=== PATIENT | male | born 1955 | race Caucasian/White ===

== ENCOUNTER 2017-10-13 18:03 | Emergency (ER) | payer OTHER ==
[~2017-10-13] VITALS: Ht 177.8 cm; Wt 87.3 kg
[~2017-10-13 18:03] MED LIST: CIPR0.3S LEFT EAR
[2017-10-13 18:08] VITALS: BP 199/90; PULSE 105; RESP 18; TEMP 97.9; O2SAT 95
[2017-10-13] MEDS ORDERED: MULTTAB67 PO (18:14)
[2017-10-13] MEDS ORDERED: ASPI81TA23 PO (18:14)
--- NOTE | 2017-10-13 18:31 | PD ---
HPI Chief Complaint: Hypertension Time Seen by Provider: 18:12 Travel History International Travel<30 days: No Contact w/Intl Traveler<30days: No Traveled to known affect area: No History of Present Illness HPI The patient is a 62-year-old male who presents to the emergency department for elevated blood pressure, lightheadedness, and diaphoresis. The patient states he has a history of borderline hypertension and has been watching it closely, states his systolic blood pressure runs between 155-165 and his diastolic blood pressure runs in the 80s. He has been followed by his primary physician, Dr. Gregg Dwyer, who advised him that if he continued be elevated he would need to undergo treatment. The patient states she was a friend's house earlier tonight when he became slightly diaphoretic and lightheaded. The patient states they checked his blood pressure with a home blood pressure device and it read 180s/90s. The patient states he had no chest pain, shortness breath, nausea, vomiting, or weakness. He did complain of mild lightheadedness at that time. He states his symptoms have significantly improved. The patient does have a history of tobacco use, take some baby aspirin daily, but denies any chronic medical problems. Symptoms are mild to moderate, possibly exacerbated by history of elevated blood pressure, and mostly self alleviating. PFSH Past Medical History Diminished Hearing: No Hypertension: Yes (borderline) Immunizations Current: Yes Tetanus Vaccination: < 5 Years Influenza Vaccination: No Social History Alcohol Use: No Tobacco Use: Yes (1 pk) Substance Use: No Allergies-Medications (Allergen,Severity, Reaction): Coded Allergies: No Known Allergies (Unverified Adverse Reaction, Unknown, 10/13/17) Reported Meds & Prescriptions Reported Meds & Active Scripts Active Reported Multiple Vitamin 1 Tab 1 Tab PO DAILY Aspirin EC (Aspirin) 81 Mg Tabdr 81 Mg PO DAILY Review of Systems Except as stated in HPI: all other systems reviewed are Neg Eyes: No: Blurred Vision HENT: Positive: Lightheadedness, No: Headaches Cardiovascular: Positive: Diaphoresis, No: Chest Pain or Discomfort, Palpitations, Irregular Rhythm, Dyspnea on exertion Respiratory: No: Shortness of Breath Gastrointestinal: No: Nausea, Vomiting, Abdominal Pain Musculoskeletal: No: Weakness Neurologic: Positive: Dizziness, No: Headache, Change in Mentation, Slurred Speech, Paresthesia, Sensory Disturbance Physical Exam Narrative GENERAL: Awake, alert, pleasant 62-year-old male who appears his stated age and is in no acute respiratory distress. SKIN: Focused skin assessment warm/dry. HEAD: Atraumatic. Normocephalic. EYES: Pupils equal and round. 4 mm bilateral and reactive. EOMs are intact. ENT: No nasal bleeding or discharge. Mucous membranes pink and moist. NECK: Trachea midline. No JVD. CARDIOVASCULAR: Regular, tachycardic with a heart rate of 102. RESPIRATORY: No accessory muscle use. Clear to auscultation. Breath sounds equal bilaterally. GASTROINTESTINAL: Abdomen soft, non-tender, nondistended. 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 NEUROLOGICAL: Awake and alert. No obvious cranial nerve deficits. Motor grossly within normal limits. Normal speech. Nonfocal. PSYCHIATRIC: Appropriate mood and affect; insight and judgment normal. Data Data Last Documented VS Vital Signs Date Time Temp Pulse Resp B/P (MAP) Pulse Ox O2 Delivery O2 Flow Rate FiO2 10/13/17 18:56 104 18 95 Room Air 10/13/17 18:53 154/87 (109) 174/92 (119) 10/13/17 18:08 97.9 Orders Orders Electrocardiogram (10/13/17 18:26) Ckmb (Isoenzyme) Profile (10/13/17 18:26) Complete Blood Count With Diff (10/13/17 18:26) Comprehensive Metabolic Panel (10/13/17 18:26) Troponin I (10/13/17 18:26) Ecg Monitoring (10/13/17 18:26) Bilateral Bp Monitoring (10/13/17 18:26) Iv Access Insert/Monitor (10/13/17 18:26) Oximetry (10/13/17 18:26) Oxygen Administration (10/13/17 18:26) Magnesium (Mg) (10/13/17 18:26) CKMB (10/13/17 18:30) CKMB% (10/13/17 18:30) Lisinopril (Prinivil) (10/13/17 19:15) Ed Discharge Order (10/13/17 19:09) Labs Laboratory Tests Test 10/13/17 18:30 White Blood Count 10.9 TH/MM3 Red Blood Count 4.90 MIL/MM3 Hemoglobin 14.5 GM/DL Hematocrit 42.9 % Mean Corpuscular Volume 87.5 FL Mean Corpuscular Hemoglobin 29.6 PG Mean Corpuscular Hemoglobin Concent 33.9 % Red Cell Distribution Width 12.8 % Platelet Count 377 TH/MM3 Mean Platelet Volume 7.2 FL Neutrophils (%) (Auto) 68.9 % Lymphocytes (%) (Auto) 23.4 % Monocytes (%) (Auto) 5.2 % Eosinophils (%) (Auto) 1.8 % Basophils (%) (Auto) 0.7 % Neutrophils # (Auto) 7.5 TH/MM3 Lymphocytes # (Auto) 2.5 TH/MM3 Monocytes # (Auto) 0.6 TH/MM3 Eosinophils # (Auto) 0.2 TH/MM3 Basophils # (Auto) 0.1 TH/MM3 CBC Comment DIFF FINAL Differential Comment Blood Urea Nitrogen 15 MG/DL Creatinine 0.90 MG/DL Random Glucose 135 MG/DL Total Protein 7.2 GM/DL Albumin 3.6 GM/DL Calcium Level 8.4 MG/DL Magnesium Level 2.2 MG/DL Alkaline Phosphatase 94 U/L Aspartate Amino Transf (AST/SGOT) 17 U/L Alanine Aminotransferase (ALT/SGPT) 24 U/L Total Bilirubin 0.2 MG/DL Sodium Level 140 MEQ/L Potassium Level 4.0 MEQ/L Chloride Level 106 MEQ/L Carbon Dioxide Level 26.7 MEQ/L Anion Gap 7 MEQ/L Estimat Glomerular Filtration Rate 85 ML/MIN Total Creatine Kinase 160 U/L Troponin I LESS THAN 0.02 NG/ML MDM Medical Decision Making Medical Screen Exam Complete: Yes Emergency Medical Condition: Yes Medical Record Reviewed: Yes Interpretation(s) EKG reveals sinus tachycardia with a heart rate of 104. Q wave noted in lead V1 and V2. QTC 408 ms. QT interval is just less than half of the RR interval. Laboratory Tests Test 10/13/17 18:30 White Blood Count 10.9 TH/MM3 Red Blood Count 4.90 MIL/MM3 Hemoglobin 14.5 GM/DL Hematocrit 42.9 % Mean Corpuscular Volume 87.5 FL Mean Corpuscular Hemoglobin 29.6 PG Mean Corpuscular Hemoglobin Concent 33.9 % Red Cell Distribution Width 12.8 % Platelet Count 377 TH/MM3 Mean Platelet Volume 7.2 FL Neutrophils (%) (Auto) 68.9 % Lymphocytes (%) (Auto) 23.4 % Monocytes (%) (Auto) 5.2 % Eosinophils (%) (Auto) 1.8 % Basophils (%) (Auto) 0.7 % Neutrophils # (Auto) 7.5 TH/MM3 Lymphocytes # (Auto) 2.5 TH/MM3 Monocytes # (Auto) 0.6 TH/MM3 Eosinophils # (Auto) 0.2 TH/MM3 Basophils # (Auto) 0.1 TH/MM3 CBC Comment DIFF FINAL Differential Comment Blood Urea Nitrogen 15 MG/DL Creatinine 0.90 MG/DL Random Glucose 135 MG/DL Total Protein 7.2 GM/DL Albumin 3.6 GM/DL Calcium Level 8.4 MG/DL Magnesium Level 2.2 MG/DL Alkaline Phosphatase 94 U/L Aspartate Amino Transf (AST/SGOT) 17 U/L Alanine Aminotransferase (ALT/SGPT) 24 U/L Total Bilirubin 0.2 MG/DL Sodium Level 140 MEQ/L Potassium Level 4.0 MEQ/L Chloride Level 106 MEQ/L Carbon Dioxide Level 26.7 MEQ/L Anion Gap 7 MEQ/L Estimat Glomerular Filtration Rate 85 ML/MIN Total Creatine Kinase 160 U/L Troponin I LESS THAN 0.02 NG/ML Differential Diagnosis Differential diagnosis includes hypertension, hypertensive urgency, hypertensive emergency, LA, ACS, intracranial hemorrhage, pulmonary embolism. Narrative Course IV was established, labs were drawn and sent, and the patient was placed on cardiac telemetry monitoring and continuous pulse oximetry monitoring. EKG was ordered and interpreted. The patient's EKG did reveal sinus tachycardia with a QTC of 408 ms, QT interval was just less than half of the RR interval, therefore , magnesium level was sent to lab. The patient's magnesium level was normal at 2.2. The patient's blood pressure varied between the 150s to the 190s systolic in the emergency department. Heart rate was right around 100-105. The patient has no chest pain or shortness of breath, I doubt pulmonary embolism. The patient does appear to have underlying hypertension, we had a discussion regarding treatment with Norvasc versus lisinopril. The patient does have a right lower extremity prosthesis and would prefer to avoid dependent edema, therefore, will be placed on low Cipro. He is advised that he will need repeat laboratory testing in 3-6 months. He will be provided a copy of his EKG and lab results at discharge, is advised to follow-up with his primary physician, Dr. Gregg Dwyer, as scheduled in 2 weeks and the monitor his blood pressure daily with a blood pressure log. The patient agrees and understands. He is also advised to return if symptoms worsen or progress. Diagnosis Primary Impression: Hypertension Qualified Codes: I10 - Essential (primary) hypertension Patient Instructions: General Instructions Additional Instructions: Medication as directed. Monitor blood pressure daily and keep a blood pressure log. Please provide the patient a copy of his EKG and lab results at discharge. Follow-up with Dr. Gregg Dwyer as scheduled. Return sooner if symptoms worsen or progress. Med/Other Pt SpecificInfo: Prescription(s) given Scripts Lisinopril (Lisinopril) 10 Mg Tab 10 MG PO DAILY, #30 TAB 0 Refills Prov: Bernardo Suh MD 10/13/17 Disposition: 01 DISCHARGE HOME Condition: Stable Bernardo Suh MD Oct 13, 2017 18:31
[2017-10-13 18:43] LABS: AUTOMATED NEUTROPHIL # 7.5 TH/MM3 (1.8-7.7); BASOPHIL # 0.1 TH/MM3 (0-0.2); BASOPHIL % 0.7 % (0.0-2.0); EOSINOPHIL # 0.2 TH/MM3 (0-0.4); EOSINOPHIL % 1.8 % (0.0-4.0); HEMATOCRIT 42.9 % (39.0-51.0); HEMO FLAGS DIFF FINAL; LYMPH % 23.4 % (9.0-44.0); LYMPHOCYTE # 2.5 TH/MM3 (1.0-4.8); MEAN CELL VOLUME 87.5 FL (80.0-100.0); MEAN CORPUSCULAR HEMOGLOBIN 29.6 PG (27.0-34.0); MEAN CORPUSCULAR HGB CONC 33.9 % (32.0-36.0); MONO % 5.2 % (0.0-8.0); NEUT % 68.9 % (16.0-70.0); PLATELET COUNT 377 TH/MM3 (150-450); RED CELL DISTRIBUTION WIDTH 12.8 % (11.6-17.2); WHITE BLOOD COUNT 10.9 TH/MM3 (4.0-11.0)
[2017-10-13 18:46] VITALS: O2SAT 95
[2017-10-13 18:53] VITALS: BP_SYST 154; BP_SYST 174; BP_DIAS 87; BP_DIAS 92; PULSE 104; RESP 18; O2SAT 95
[2017-10-13 18:53] LABS: CHLORIDE 106 MEQ/L (98-107); SODIUM (NA) 140 MEQ/L (136-145)
[2017-10-13 18:56] LABS: ANION GAP 7 MEQ/L (5-15); BICARBONATE 26.7 MEQ/L (21.0-32.0); BLOOD UREA NITROGEN 15 MG/DL (7-18); MAGNESIUM 2.2 MG/DL (1.5-2.5)
[2017-10-13 18:59] LABS: ALT (GPT) 24 U/L (12-78); AST (GOT) 17 U/L (15-37)
[2017-10-13 19:00] LABS: GLOMERULAR FILTRATION RATE 85 ML/MIN (>89)
[2017-10-13 19:01] LABS: TOTAL BILIRUBIN ADULT 0.2 MG/DL (0.2-1.0)
[2017-10-13 19:02] LABS: ALKALINE PHOSPHATASE 94 U/L (45-117); CREATINE KINASE 160 U/L (39-308)
[2017-10-13] MEDS ORDERED: LISI10TA3 PO (19:12)
[2017-10-13 19:14] LABS: CKMB 2.2 NG/ML (0.5-3.6)
[2017-10-13] MEDS ORDERED: LISINOPRIL 10 MG TAB PO ONE (19:15)
[2017-10-13 19:35] VITALS: BP 175/86
--- NOTE | 2017-10-14 13:03 | EKG ---
Date Performed: 10/13/2017 Time Performed: 18:31:46 PTAGE: 62 years EKG: SINUS TACHYCARDIA SEPTAL MYOCARDIAL INFARCTION ABNORMAL ECG NO PREVIOUS TRACING DOCTOR: Lukas Cowan Interpretating Date/Time 10/14/2017 13:01:46
== END 2017-10-13 19:37 | disposition home or self-care (01) ==
LOC: PHED 18:03
DX: I10 Essential (primary) hypertension (principal); R61 Generalized hyperhidrosis; R00.0 Tachycardia, unspecified; F17.200 Nicotine dependence, unspecified, uncomplicated; Z79.82 Long term (current) use of aspirin
CPT/HCPCS: 80053; 82550; 82552; 83735; 84484; 85025; 93005

== ENCOUNTER 2018-02-27 21:41 | Emergency (ER) | payer OTHER ==
[~2018-02-27] VITALS: Ht 177.8 cm; Wt 84.5 kg
[~2018-02-27 21:41] MED LIST changes: +ASPI81TA23 PO; -CIPR0.3S LEFT EAR; +LISI10TA3 PO; +MULTTAB67 PO
[2018-02-27 21:46] VITALS: BP_SYST 164; BP_SYST 193; BP_DIAS 107; BP_DIAS 74; PULSE 85; PULSE 99; RESP 20; TEMP 98.8; O2SAT 96
[2018-02-27] MEDS ORDERED: LISI40TA PO (22:10)
[2018-02-27] MEDS ORDERED: AMLO2.5T PO (22:10)
[2018-02-27 22:12] VITALS: BP 184/107; PULSE 97; RESP 18; O2SAT 96
[2018-02-27 23:04] LABS: AUTOMATED NEUTROPHIL # 8.9 TH/MM3 (1.8-7.7); BASOPHIL # 0.2 TH/MM3 (0-0.2); BASOPHIL % 1.3 % (0.0-2.0); EOSINOPHIL # 0.2 TH/MM3 (0-0.4); EOSINOPHIL % 1.5 % (0.0-4.0); HEMOGLOBIN 15.5 GM/DL (13.0-17.0); LYMPH % 26.3 % (9.0-44.0); LYMPHOCYTE # 3.5 TH/MM3 (1.0-4.8); MEAN CELL VOLUME 88.4 FL (80.0-100.0); MEAN CORPUSCULAR HEMOGLOBIN 29.8 PG (27.0-34.0); MEAN CORPUSCULAR HGB CONC 33.7 % (32.0-36.0); MEAN PLATELET VOLUME 8.3 FL (7.0-11.0); MONO % 4.4 % (0.0-8.0); MONOCYTE # 0.6 TH/MM3 (0-0.9); NEUT % 66.5 % (16.0-70.0); PLATELET COUNT 273 TH/MM3 (150-450); RED BLOOD COUNT 5.21 MIL/MM3 (4.50-5.90); RED CELL DISTRIBUTION WIDTH 13.6 % (11.6-17.2); WHITE BLOOD COUNT 13.4 TH/MM3 (4.0-11.0)
[2018-02-27 23:15] LABS: CHLORIDE 105 MEQ/L (98-107); SODIUM (NA) 138 MEQ/L (136-145)
[2018-02-27] MEDS ORDERED: ACETAMINOPHEN 325 MG TAB PO ONE (23:15)
--- NOTE | 2018-02-27 23:15 | RADRPT ---
EXAM DATE/TIME: 02/27/2018 22:51 [facility] COMPARISON: No previous studies available for comparison. INDICATIONS : Hypertension, dizziness. MEDICAL HISTORY : None. SURGICAL HISTORY : None. ENCOUNTER: Initial ACUITY: 1 day PAIN SCORE: 0/10 LOCATION: Bilateral chest FINDINGS: A single view of the chest demonstrates the lungs to be symmetrically aerated without evidence of mas s, infiltrate or effusion. The cardiomediastinal contours are unremarkable. Osseous structures are intact. CONCLUSION: No acute disease. Clif Peacock MD on February 27, 2018 at 23:14 Board Certified Radiologist. This report was verified electronically.
[2018-02-27 23:18] LABS: CALCIUM 8.7 MG/DL (8.5-10.1)
[2018-02-27 23:19] LABS: BICARBONATE 26.7 MEQ/L (21.0-32.0); BLOOD UREA NITROGEN 19 MG/DL (7-18); GLUCOSE,RANDOM 93 MG/DL (74-106)
[2018-02-27 23:22] LABS: CREATININE 0.83 MG/DL (0.60-1.30); GLOMERULAR FILTRATION RATE 93 ML/MIN (>89)
--- NOTE | 2018-02-27 23:22 | PD ---
HPI Chief Complaint: Hypertension Time Seen by Provider: 23:14 Travel History International Travel<30 days: No Contact w/Intl Traveler<30days: No Traveled to known affect area: No History of Present Illness HPI The patient is a 62-year-old male that complains of anxiety, lightheadedness without vertigo and he felt his blood pressure going up around 7:30 PM tonight. He denies any chest pain or shortness of breath. He denies any focal neurologic change. He has a mild headache in both temporal regions and bifrontal areas which is a 3/10. The headache is a pressure sensation. He denies any fever. He does smoke 1-1/2 packs a day. The patient is taking his lisinopril and amlodipine correctly. He did take an aspirin, full strength, earlier tonight. He does have a friend that will drive him home tonight. PFSH Past Medical History Diminished Hearing: No Hypertension: Yes (borderline) Immunizations Current: Yes Tetanus Vaccination: < 5 Years Influenza Vaccination: No Social History Alcohol Use: Yes (OCCASIONALLY) Tobacco Use: Yes (1 /2 PPD) Substance Use: No Allergies-Medications (Allergen,Severity, Reaction): Coded Allergies: No Known Allergies (Unverified Allergy, Unknown, 02/27/18) Reported Meds & Prescriptions Reported Meds & Active Scripts Active Reported Amlodipine (Amlodipine Besylate) 2.5 Mg Tab 2.5 Mg PO DAILY Lisinopril 40 Mg Tab 40 Mg PO DAILY Multiple Vitamin 1 Tab 1 Tab PO DAILY Aspirin EC (Aspirin) 81 Mg Tabdr 81 Mg PO DAILY Review of Systems Except as stated in HPI: all other systems reviewed are Neg Physical Exam Narrative GENERAL: The patient is alert, slightly anxious, oriented 3 in minimal apparent distress with his headache. His vital signs show initial blood pressure of 193/107 and repeat blood pressure is 175/95. The patient smells of tobacco. SKIN: Focused skin assessment warm/dry. HEAD: Atraumatic. Normocephalic. EYES: Pupils equal and round. No scleral icterus. No injection or drainage. ENT: No nasal bleeding or discharge. Mucous membranes pink and moist. NECK: Trachea midline. No JVD. CARDIOVASCULAR: Regular rate and rhythm. No murmur appreciated. RESPIRATORY: No accessory muscle use. Clear to auscultation. Breath sounds equal bilaterally. GASTROINTESTINAL: Abdomen soft, non-tender, nondistended. Hepatic and splenic margins not palpable. MUSCULOSKELETAL: No obvious deformities. No clubbing. No cyanosis. No edema. NEUROLOGICAL: Awake and alert. No obvious cranial nerve deficits. Motor grossly within normal limits. Normal speech. PSYCHIATRIC: Appropriate mood and affect; insight and judgment normal. Data Data Last Documented VS Vital Signs Date Time Temp Pulse Resp B/P (MAP) Pulse Ox O2 Delivery O2 Flow Rate FiO2 02/27/18 23:31 18 96 Room Air 02/27/18 23:30 98 02/27/18 21:46 98.8 Orders Orders Electrocardiogram (02/27/18 22:49) Complete Blood Count With Diff (02/27/18 22:49) Basic Metabolic Panel (Bmp) (02/27/18 22:49) Ckmb (Isoenzyme) Profile (02/27/18 22:49) Troponin I (02/27/18 22:49) Chest, Single Ap (02/27/18 22:49) Iv Access Insert/Monitor (02/27/18 22:49) Ecg Monitoring (02/27/18 22:49) Oximetry (02/27/18 22:49) Acetaminophen (Tylenol) (02/27/18 23:15) Lorazepam Inj (Ativan Inj) (02/27/18 23:30) Labs Laboratory Tests Test 02/27/18 20:20 02/27/18 22:20 White Blood Count 13.4 TH/MM3 Red Blood Count 5.21 MIL/MM3 Hemoglobin 15.5 GM/DL Hematocrit 46.0 % Mean Corpuscular Volume 88.4 FL Mean Corpuscular Hemoglobin 29.8 PG Mean Corpuscular Hemoglobin Concent 33.7 % Red Cell Distribution Width 13.6 % Platelet Count 273 TH/MM3 Mean Platelet Volume 8.3 FL Neutrophils (%) (Auto) 66.5 % Lymphocytes (%) (Auto) 26.3 % Monocytes (%) (Auto) 4.4 % Eosinophils (%) (Auto) 1.5 % Basophils (%) (Auto) 1.3 % Neutrophils # (Auto) 8.9 TH/MM3 Lymphocytes # (Auto) 3.5 TH/MM3 Monocytes # (Auto) 0.6 TH/MM3 Eosinophils # (Auto) 0.2 TH/MM3 Basophils # (Auto) 0.2 TH/MM3 CBC Comment DIFF FINAL Differential Comment Blood Urea Nitrogen 19 MG/DL Creatinine 0.83 MG/DL Random Glucose 93 MG/DL Calcium Level 8.7 MG/DL Sodium Level 138 MEQ/L Potassium Level 4.0 MEQ/L Chloride Level 105 MEQ/L Carbon Dioxide Level 26.7 MEQ/L Anion Gap 6 MEQ/L Estimat Glomerular Filtration Rate 93 ML/MIN Total Creatine Kinase 92 U/L Troponin I LESS THAN 0.02 NG/ML MDM Medical Decision Making Medical Screen Exam Complete: Yes Emergency Medical Condition: Yes Medical Record Reviewed: Yes Interpretation(s) The EKG shows sinus tachycardia with a rate of [address] elevation or depression. The CBC shows a white count of 13,400 but is otherwise normal. The basic metabolic profile shows a BUN of 19 but is otherwise normal. The cardiac enzymes are normal. Differential Diagnosis Anxiety, blood pressure poor control Narrative Course The patient appears to have some anxiety. This apparently elevated his blood pressure slightly. He has no focal neurologic change. He should follow-up with his primary care physician as soon as possible. The cardiac enzymes and blood work is all normal except for minimal elevation of the white count at 13, 400. Diagnosis Primary Impression: Anxiety Additional Impression: Elevated blood pressure reading Additional Instructions: Follow-up with your primary care physician to control the blood pressure. Tonight, it appears that anxiety played a major part in the blood pressure elevation. Disposition: 01 DISCHARGE HOME Condition: Stable Bayron Fletcher MD Feb 27, 2018 23:22
[2018-02-27 23:26] LABS: TROPONIN I LESS THAN 0.02 NG/ML (0.02-0.05)
[2018-02-27 23:30] VITALS: BP 174/94; PULSE 98; RESP 18; O2SAT 96
[2018-02-27] MEDS ORDERED: LORazepam 2 MG/ML VIAL IV PUSH ONE (23:30)
[2018-02-27 23:31] VITALS: RESP 18; O2SAT 96
--- NOTE | 2018-02-28 07:40 | EKG ---
Date Performed: 02/27/2018 Time Performed: 23:03:20 PTAGE: 62 years EKG: SINUS TACHYCARDIA with PAC ABNORMAL RHYTHM ECG PREVIOUS TRACING : 10/13/2017 18.31 No significant change from prior electrocardiogram. DOCTOR: Tim Haywood Interpretating Date/Time 02/28/2018 07:38:16
== END 2018-02-28 00:14 | disposition home or self-care (01) ==
LOC: PHED 21:41
DX: F41.9 Anxiety disorder, unspecified (principal); R03.0 Elevated blood-pressure reading, without diagnosis of hypertension; R94.31 Abnormal electrocardiogram [ECG] [EKG]; F17.200 Nicotine dependence, unspecified, uncomplicated
CPT/HCPCS: 71045; 80048; 82550; 84484; 85025; 93005; 96374; 99285; J2060

== ENCOUNTER 2018-04-09 18:56 | Inpatient (IN) | payer OTHER ==
[~2018-04-09] VITALS: Ht 177.8 cm; Wt 81.6 kg
[~2018-04-09 18:56] MED LIST changes: +AMLO2.5T PO; -LISI10TA3 PO; +LISI40TA PO
[2018-04-09 19:04] VITALS: BP 183/101; PULSE 86; RESP 18; O2SAT 95
[2018-04-09] MEDS ORDERED: ASPIRIN 81 MG CHEW TAB PO ONE (19:30)
[2018-04-09] MEDS ORDERED: SODIUM CHLORIDE 0.9% FLUSH 10 ML FLUSH IVF PRN (19:30)
--- NOTE | 2018-04-09 19:30 | PD ---
HPI Chief Complaint: Hypertension Time Seen by Provider: 19:29 Travel History International Travel<30 days: No Contact w/Intl Traveler<30days: No Traveled to known affect area: No History of Present Illness HPI 62-year-old male with history of hypertension and tobaccoism presents to the emergency department for complaint of retrosternal chest discomfort and eyes burning since approximately 5 PM. Patient reports he has had symptoms like this before but never had chest discomfort. Patient denies any referred neck jaw back shoulder or arm pain. Patient had transient nausea but no shortness of breath or sweats. Patient denies any abdominal pain. Patient denies any upper extremity or lower extremity numbness tingling or weakness. Patient did have associated dizziness. Patient states he checked his blood pressure and was elevated. Patient took amlodipine 5 mg at 6 PM. Patient has history of hypertension is prescribed lisinopril 40 mg daily and more recently amlodipine 5 mg daily. Amlodipine was increased after last hospital visit February 2018 at which time he was on amlodipine 2.5 mg with episodes of elevated blood pressure and reported anxiety. Patient's blood pressure medication dose was increased and he was given prescription for antianxiety appear patient did not take antianxiety today and did not feel particularly stressed when episode began. Patient denies any coronary vessel disease, dyslipidemia, diabetes, or premature onset family history of coronary vessel disease. Patient's had no altered mentation no sudden onset worst ever thunderclap headache no change in mentation no change in speech no balance disturbance no ataxia no upper extremity or lower extremity numbness tingling or weakness. Friend who is present was with him when symptoms began and denies any noted neurologic symptoms. Patient is unable to identify exacerbating or alleviating factors. [facility] Past Medical History Narrative Medical Aspirin daily hypertension COPD tonsillectomy tobacco use occasional alcohol use ; family history negative for CVA or MN; nursing notes reviewed Hx Anticoagulant Therapy: Yes (81mg ASA) Cardiovascular Problems: Yes (HTN) Diminished Hearing: No Hypertension: Yes Respiratory: Yes (COPD) Immunizations Current: Yes Past Surgical History Tonsillectomy: Yes Social History Alcohol Use: Yes (OCCASIONALLY) Tobacco Use: Yes (12 cig/ day) Substance Use: No Allergies-Medications (Allergen,Severity, Reaction): Coded Allergies: No Known Allergies (Unverified Allergy, Unknown, 04/09/18) Reported Meds & Prescriptions Reported Meds & Active Scripts Active Reported Amlodipine (Amlodipine Besylate) 2.5 Mg Tab 5 Mg PO DAILY Lisinopril 40 Mg Tab 40 Mg PO DAILY Review of Systems Except as stated in HPI: all other systems reviewed are Neg Physical Exam Narrative GENERAL: Well-developed, nourished male no acute distress no respiratory distress; GCS 15 SKIN: Warm and dry. HEAD: Atraumatic. Normocephalic. EYES: Pupils equal and round. No scleral icterus. No injection or drainage. ENT: No nasal bleeding or discharge. Mucous membranes pink and moist. NECK: Trachea midline. No JVD. No carotid bruits. CARDIOVASCULAR: Regular rate and rhythm. RESPIRATORY: No accessory muscle use. Clear to auscultation. Breath sounds equal bilaterally. GASTROINTESTINAL: Abdomen soft, non-tender, nondistended. Hepatic and splenic margins not palpable. MUSCULOSKELETAL: Extremities without clubbing, cyanosis, or edema. No obvious deformities. NEUROLOGICAL: Awake and alert. No obvious cranial nerve deficits. Motor grossly within normal limits. Five out of 5 muscle strength in the arms and legs. Normal speech. PSYCHIATRIC: Appropriate mood and affect; insight and judgment normal. Data Data Last Documented VS Vital Signs Date Time Temp Pulse Resp B/P (MAP) Pulse Ox O2 Delivery O2 Flow Rate FiO2 04/09/18 20:16 16 04/09/18 20:15 106 147/74 (98) 94 Room Air Orders Orders Electrocardiogram (04/09/18 19:29) Basic Metabolic Panel (Bmp) (04/09/18 19:29) Ckmb (Isoenzyme) Profile (04/09/18 19:29) Complete Blood Count With Diff (04/09/18 19:29) Magnesium (Mg) (04/09/18 19:29) Prothrombin Time / Inr (Pt) (04/09/18 19:29) Act Partial Throm Time (Ptt) (04/09/18 19:29) Troponin I (04/09/18 19:29) Ecg Monitoring (04/09/18 19:29) Bilateral Bp Monitoring (04/09/18 19:29) Iv Access Insert/Monitor (04/09/18 19:29) Oximetry (04/09/18 19:29) Oxygen Administration (04/09/18 19:29) Aspirin Chew (Aspirin Chew) (04/09/18 19:30) Sodium Chloride 0.9% Flush (Ns Flush) (04/09/18 19:30) Chest, Pa & Lat (04/09/18 19:29) Sodium Chlorid 0.9% 500 Ml Inj (Ns 500 M (04/09/18 19:45) Nitroglycerin Sl (Nitrostat Sl) (04/09/18 19:45) Urinalysis - C+S If Indicated (04/09/18 20:30) Admit Order (Ed Use Only) (04/09/18 ) Sailing Master / Telemetry ROS.Q8H (04/09/18 20:53) Activity Oob With Assistance (04/09/18 20:53) Notify Dr: Other (04/09/18 20:53) Vital Signs (Adult) Q4H (04/09/18 20:53) Activity Bed Rest With Brp (04/09/18 ) Sailing Master / Telemetry ROS.Q8H (04/09/18 20:53) Sodium Chloride 0.9% Flush (Ns Flush) (04/09/18 21:00) Sodium Chloride 0.9% Flush (Ns Flush) (04/09/18 21:00) Nitroglycerin 2% Oint (Nitroglycerin 2% (04/10/18 00:00) Alprazolam (Xanax) (04/09/18 21:00) Creatine Kinase (Cpk) (04/09/18 22:45) Creatine Kinase (Cpk) (04/10/18 04:45) Troponin I (04/09/18 22:45) Electrocardiogram (04/09/18 22:45) Electrocardiogram (04/10/18 04:45) Labs Laboratory Tests Test 04/09/18 19:42 White Blood Count 14.3 TH/MM3 Red Blood Count 5.30 MIL/MM3 Hemoglobin 15.6 GM/DL Hematocrit 46.9 % Mean Corpuscular Volume 88.6 FL Mean Corpuscular Hemoglobin 29.5 PG Mean Corpuscular Hemoglobin Concent 33.3 % Red Cell Distribution Width 13.1 % Platelet Count 293 TH/MM3 Mean Platelet Volume 7.9 FL Neutrophils (%) (Auto) 73.6 % Lymphocytes (%) (Auto) 21.0 % Monocytes (%) (Auto) 3.7 % Eosinophils (%) (Auto) 0.7 % Basophils (%) (Auto) 1.0 % Neutrophils # (Auto) 10.6 TH/MM3 Lymphocytes # (Auto) 3.0 TH/MM3 Monocytes # (Auto) 0.5 TH/MM3 Eosinophils # (Auto) 0.1 TH/MM3 Basophils # (Auto) 0.1 TH/MM3 CBC Comment DIFF FINAL Differential Comment Prothrombin Time 10.1 SEC Prothromb Time International Ratio 1.0 RATIO Activated Partial Thromboplast Time 27.9 SEC Blood Urea Nitrogen 13 MG/DL Creatinine 0.68 MG/DL Random Glucose 93 MG/DL Calcium Level 8.9 MG/DL Magnesium Level 2.2 MG/DL Sodium Level 137 MEQ/L Potassium Level 3.9 MEQ/L Chloride Level 105 MEQ/L Carbon Dioxide Level 25.9 MEQ/L Anion Gap 6 MEQ/L Estimat Glomerular Filtration Rate 117 ML/MIN Total Creatine Kinase 93 U/L Troponin I LESS THAN 0.02 NG/ML MDM Medical Decision Making Medical Screen Exam Complete: Yes Emergency Medical Condition: Yes Medical Record Reviewed: Yes Interpretation(s) EKG: Normal sinus rhythm rate [address] elevation or injury pattern change occasional PAC Last Impressions Chest X-Ray 04/09/181928 Signed Impressions: Service Date/Time: Monday, April 09, 2018 19:42 - CONCLUSION: 1. No acute cardiopulmonary disease. Dayo Agrawal MD CBC & BMP Diagram 04/09/18 19:42 Calcium Level 8.9, Magnesium Level 2.2 Vital Signs Date Time Temp Pulse Resp B/P (MAP) Pulse Ox O2 Delivery O2 Flow Rate FiO2 04/09/18 20:16 16 04/09/18 20:15 106 16 147/74 (98) 94 Room Air 04/09/18 20:08 94 Room Air 04/09/18 20:08 101 16 164/85 (111) 94 Room Air 04/09/18 20:08 16 94 Room Air 04/09/18 19:43 161/83 (109) 163/87 (112) 04/09/18 19:04 86 18 183/101 (128) 95 Troponin I: Less than 0.02, not elevated Differential Diagnosis Chest pain atypical chest pain uncontrolled hypertension, aortic dissection, aneurysm, musculoskeletal pain Narrative Course Patient placed on potline monitor IV access obtained specimens collected and sent for resulting patient administered nitroglycerin and aspirin Patient with risk factor profile for cardiac disease male age over 40 tobacco use and family history of heart disease. Patient is aware of plan for observation admission to chest pain center per protocol and is agreeable with this. Physician Communication Physician Communication discussed with [facility] service for OBS Diagnosis Primary Impression: Chest pain Additional Impression: Hypertension Admitting Information Admitting Physician Requests: Observation Daysi Carlson MD April 09, 2018 19:30
[2018-04-09 19:43] VITALS: BP_SYST 161; BP_SYST 163; BP_DIAS 83; BP_DIAS 87
[2018-04-09] MEDS ORDERED: NITROGLYCERIN 0.4 MG SL 25 TABS/BTL SL ONE (19:45)
[2018-04-09] MEDS ORDERED: SODIUM CHLORID 0.9% 500 ML INJ 500 ML IV SCH (19:45)
[2018-04-09 19:49] LABS: AUTOMATED NEUTROPHIL # 10.6 TH/MM3 (1.8-7.7); BASOPHIL # 0.1 TH/MM3 (0-0.2); EOSINOPHIL # 0.1 TH/MM3 (0-0.4); EOSINOPHIL % 0.7 % (0.0-4.0); HEMATOCRIT 46.9 % (39.0-51.0); HEMOGLOBIN 15.6 GM/DL (13.0-17.0); MEAN CELL VOLUME 88.6 FL (80.0-100.0); MEAN CORPUSCULAR HEMOGLOBIN 29.5 PG (27.0-34.0); MEAN CORPUSCULAR HGB CONC 33.3 % (32.0-36.0); MEAN PLATELET VOLUME 7.9 FL (7.0-11.0); MONO % 3.7 % (0.0-8.0); MONOCYTE # 0.5 TH/MM3 (0-0.9); NEUT % 73.6 % (16.0-70.0); PLATELET COUNT 293 TH/MM3 (150-450); RED CELL DISTRIBUTION WIDTH 13.1 % (11.6-17.2); WHITE BLOOD COUNT 14.3 TH/MM3 (4.0-11.0)
[2018-04-09 19:56] LABS: CHLORIDE 105 MEQ/L (98-107); SODIUM (NA) 137 MEQ/L (136-145)
[2018-04-09 19:59] LABS: BICARBONATE 25.9 MEQ/L (21.0-32.0); CALCIUM 8.9 MG/DL (8.5-10.1); GLUCOSE,RANDOM 93 MG/DL (74-106); MAGNESIUM 2.2 MG/DL (1.5-2.5)
[2018-04-09 20:00] LABS: BLOOD UREA NITROGEN 13 MG/DL (7-18)
[2018-04-09 20:03] LABS: CREATININE 0.68 MG/DL (0.60-1.30); GLOMERULAR FILTRATION RATE 117 ML/MIN (>89)
[2018-04-09 20:05] LABS: PROTHROMBIN TIME - PATIENT 10.1 SEC (9.8-11.6)
[2018-04-09 20:07] LABS: TROPONIN I LESS THAN 0.02 NG/ML (0.02-0.05)
[2018-04-09 20:08] VITALS: BP 164/85; PULSE 101; RESP 16; O2SAT 94
--- NOTE | 2018-04-09 20:08 | RADRPT ---
EXAM DATE/TIME: 04/09/2018 19:42 [facility] COMPARISON: No previous studies available for comparison. INDICATIONS : Chest pain. MEDICAL HISTORY : Chronic obstructive pulmonary disease. SURGICAL HISTORY : None. ENCOUNTER: Initial ACUITY: 1 day PAIN SCORE: 2/10 LOCATION: Bilateral chest FINDINGS: PA and lateral views of the chest demonstrate the lungs to be symmetrically aerated without evidence of mass, infiltrate or effusion. The cardiomediastinal contours are unremarkable. Osseous structure s are intact. CONCLUSION: 1. No acute cardiopulmonary disease. Dayo Agrawal MD on April 09, 2018 at 20:06 Board Certified Radiologist. This report was verified electronically.
[2018-04-09 20:15] VITALS: BP 147/74; PULSE 106; RESP 16; RESP 46; O2SAT 94
[2018-04-09] MEDS ORDERED: SODIUM CHLORIDE 0.9% FLUSH 10 ML FLUSH IV FLUSH PRN (21:00)
[2018-04-09] MEDS ORDERED: ALPRAZolam 0.25 MG TAB PO PRN (21:00)
[2018-04-09 21:36] VITALS: BP 141/93; PULSE 100; RESP 16; O2SAT 94
[2018-04-09] MEDS: SODIUM CHLORIDE 0.9% FLUSH 10 ML FLUSH IV FLUSH SCH (21:38)
[2018-04-09 21:42] LABS: BILIRUBIN, URINE NEG (NEG); BLOOD, URINE NEG (NEG); GLUCOSE,URINE NEG (NEG); KETONE, URINE NEG (NEG); NITRITE,URINE NEG (NEG); PH, URINE 5.5 (5.0-8.5); URINE COLOR YELLOW (YELLW/STRAW); URINE LEUKOCYTE ESTERASE NEG (NEG)
[2018-04-09 21:48] LABS: RBC, URINE 0-2 /hpf (0-3); SQUAMOUS EPITHELIAL CELL URINE 0-5 /hpf (0-5); WBC, URINE 0-2 /hpf (0-5)
--- NOTE | 2018-04-09 22:37 | EKG ---
Date Performed: 04/09/2018 Time Performed: 19:16:34 PTAGE: 62 years EKG: Sinus rhythm NORMAL ECG PREVIOUS TRACING : 02/27/2018 23.03 No significant change from previous tracing noted. DOCTOR: Epi Osorio Interpretating Date/Time 04/09/2018 22:36:18
--- NOTE | 2018-04-09 22:49 | EKG ---
Date Performed: 04/09/2018 Time Performed: 22:31:06 PTAGE: 62 years EKG: Sinus rhythm NORMAL ECG PREVIOUS TRACING : 04/09/2018 19.16 No significant change from previous tracing noted. DOCTOR: Epi Osorio Interpretating Date/Time 04/09/2018 22:47:38
[2018-04-09 23:00] VITALS: BP 158/95; PULSE 96; RESP 22; TEMP 97.8; O2SAT 98
[2018-04-10] VITALS (12 sets, daily range): BP systolic 103–150; BP diastolic 70–86; PULSE 83–106; RESP 20–26; TEMP 96.2–97.8; O2SAT 91–96
[2018-04-10] MEDS: NITROGLYCERIN 2% OINT 1 GM PACKET TOP SCH ×5 (01:19→23:40)
--- NOTE | 2018-04-10 07:57 | EKG ---
Date Performed: 04/10/2018 Time Performed: 04:48:26 PTAGE: 62 years EKG: Sinus rhythm WITH OCCASIONAL SUPRAVENTRICULAR PREMATURE COMPLEXES BORDERLINE ECG PREVIOUS TRACING : 04/09/2018 22.31 No significant change from previous tracing noted. DOCTOR: Epi Osorio Interpretating Date/Time 04/10/2018 07:56:20
[2018-04-10] MEDS: SODIUM CHLORIDE 0.9% FLUSH 10 ML FLUSH IV FLUSH SCH ×2 (08:29→21:45)
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
[2018-04-10] MEDS: LISINOPRIL 20 MG TAB PO SCH (10:37)
[2018-04-10] MEDS: amLODIPine BESYLATE 5 MG TAB PO SCH (10:37)
[2018-04-10] MEDS ORDERED: REGADENOSON INJ 0.4 MG/5 ML SYR IV ONE (11:49)
--- NOTE | 2018-04-10 16:21 | RADRPT ---
EXAM DATE/TIME: 04/10/2018 11:34 [facility] COMPARISON: No previous studies available for comparison. INDICATIONS : Substernal chest pain with nausea. Angina. DOSE: 25.4 mCi Tc99m Myoview at stress. 8.5 mCi Tc99m Myoview at rest. 0.4 mg Lexiscan STRESS SYMPTOMS: Dyspnea, lightheaded and nausea. EJECTION FRACTION: 53% MEDICAL HISTORY : Hypertension. Chronic obstructive pulmonary disease. SURGICAL HISTORY : Tonsillectomy. ENCOUNTER: Initial ACUITY: 1 day PAIN SCALE: 5/10 LOCATION: Substernal chest TECHNIQUE: The patient underwent pharmacologic stress with infusion of prescribed dose. Continuous ECG tracing was monitored during stress. Gated SPECT imaging was performed after stress and conventional SPECT i maging was performed at rest. The examination was performed on a SPECT/CT scanner, both attenuation and non-corrected datasets were reviewed. FINDINGS: DISTRIBUTION: The maximum perfused segment at stress is in the anterior wall. PERFUSION STUDY: The pattern of perfusion at stress shows focal areas of reperfusion in one or 2 segments of the infer olateral and anterior belle. The anterior wall redistribution is seen on both the short axis and vert ical long axis views. The inferolateral redistribution is only seen on the short axis and may be rela eileen to increased activity in the regional bowel. Fixed diminished apical perfusion. GATED STUDY: Mild septal hypokinesis. Otherwise intact. CONCLUSION: 1. Scintigraphic findings concerning for patchy ischemia in the distribution of the anterior wall. 2. Apical thinning versus old apical infarct. 3. Mild septal hypokinesis with a preserved ejection fraction of 53% RISK CATEGORY: Intermediate (1-3% Annual Mortality Rate) Abdirashid Andres MD on April 10, 2018 at 16:09 Board Certified Radiologist. This report was verified electronically.
[2018-04-11] VITALS: BP 135/66; PULSE 79; RESP 20; TEMP 96; O2SAT 94
[2018-04-11 04:00] VITALS: BP 111/60; PULSE 101; RESP 20; TEMP 96.8; O2SAT 93
[2018-04-11] MEDS: NITROGLYCERIN 2% OINT 1 GM PACKET TOP SCH (05:45)
[2018-04-11 06:42] LABS: AUTOMATED NEUTROPHIL # 8.2 TH/MM3 (1.8-7.7); BASOPHIL % 0.2 % (0.0-2.0); EOSINOPHIL # 0.2 TH/MM3 (0-0.4); EOSINOPHIL % 1.3 % (0.0-4.0); HEMOGLOBIN 14.6 GM/DL (13.0-17.0); LYMPH % 26.4 % (9.0-44.0); LYMPHOCYTE # 3.2 TH/MM3 (1.0-4.8); MEAN CELL VOLUME 88.6 FL (80.0-100.0); MEAN CORPUSCULAR HEMOGLOBIN 30.1 PG (27.0-34.0); MONO % 4.8 % (0.0-8.0); MONOCYTE # 0.6 TH/MM3 (0-0.9); NEUT % 67.3 % (16.0-70.0); PLATELET COUNT 250 TH/MM3 (150-450); RED BLOOD COUNT 4.86 MIL/MM3 (4.50-5.90); RED CELL DISTRIBUTION WIDTH 12.9 % (11.6-17.2); WHITE BLOOD COUNT 12.2 TH/MM3 (4.0-11.0)
--- NOTE | 2018-04-11 08:35 | MB ---
cc: Tee Bruce MD DATE: 04/11/2018 INDICATION: Abnormal stress test. HISTORY OF PRESENT ILLNESS: This is a 62-year-old male with a history of hypertension, COPD, tobacco abuse, who presented to the Emergency Department with chest pain. He states that it became a midsternal chest pain, pressure-like sensation about 3/10 that was associated with shortness of breath. He came into the Emergency Department, given nitroglycerin without significant relief. Systolic blood pressure was quite elevated. He denies any recent exertional symptoms. Stress test showed abnormality with a moderate defect in the anterior wall and he was sent over from [place] for consideration of cardiac catheterization. PAST MEDICAL HISTORY: 1. Hypertension. 2. COPD. 3. Tobacco abuse. REPORTED MEDICATIONS: 1. Amlodipine. 2. Lisinopril. ALLERGIES: NONE. REVIEW OF SYSTEMS: A 12-point review of systems performed and is negative unless otherwise as noted in the history of present illness. PHYSICAL EXAMINATION: VITAL SIGNS: Temperature 76, pulse is 101, blood pressure 111/60 mmHg. GENERAL: Alert and oriented x 3 in no acute distress. HEENT: Shows pupils reactive to light and accommodation. Extraocular movements are intact. NECK: No elevation of jugular venous distention. No thyromegaly, no lymphadenopathy, no carotid bruits. LUNGS: Clear to auscultation bilaterally. HEART: Regular rate and rhythm without murmurs, rubs or gallops. ABDOMEN: Nontender, nondistended, good bowel sounds. No hepatosplenomegaly. EXTREMITIES: Show no clubbing, cyanosis or edema. Good peripheral pulses. NEUROLOGIC: Cranial nerves intact. Motor and sensory grossly intact. LABORATORY DATA: WBC 12.2, hemoglobin 14.6, platelet count is 250. INR is 1.0. Sodium 137, potassium 3.9, BUN is 13, creatinine is 0.68. Troponin is negative. ASSESSMENT: 1. Chest pain. 2. Abnormal stress test. 3. Hypertension. 4. Chronic obstructive pulmonary disease. PLAN: The patient has some symptoms consistent with angina in addition to moderate defect on stress test. We will for cardiac catheterization. The risks, benefits and alternatives discussed with the patient. The patient understood and consented to the procedure. MD OLINDA Panchal/DL , 08:18 AM , 08:34 AM
[2018-04-11] MEDS: LISINOPRIL 20 MG TAB PO SCH (09:00)
[2018-04-11] MEDS: amLODIPine BESYLATE 5 MG TAB PO SCH (09:00)
--- NOTE | 2018-04-11 09:30 | TR ---
Date Performed: 04/10/2018 Time Performed: 12:02:53 DOCTOR: Marie Pena DRUG LIST: CLINICAL HISTORY: CHEST PAIN REASON FOR TEST: Chest pain REASON FOR ENDING: OBSERVATION: CONCLUSION: Lexiscan stress test was performed under standard four minute protocol. [place]ion[place] e was injected one minute prior to ending the test. No electrocardiographic abormalities were present to suggest ischemia. Nuclear imaging and interpretation are pending. COMMENTS: no ischemia
[2018-04-11] MEDS ORDERED: HEPARIN-NS/PF INJ 500 ML ONE ×2 (10:04→10:05)
[2018-04-11] MEDS ORDERED: NITROGLYCERIN INJ 5 ML ONE (10:04)
[2018-04-11] MEDS ORDERED: MIDAZOLAM HCL 2 MG/2 ML VIAL ONE (10:05)
[2018-04-11] MEDS ORDERED: HEPARIN SODIUM - IV 10,000 UNITS/10 ML VIAL ONE (10:06)
[2018-04-11] MEDS ORDERED: ASPI81TA23 PO (10:54)
[2018-04-11] MEDS ORDERED: ATOR40TA16 PO (10:55)
--- NOTE | 2018-04-11 10:59 | CATHPROC ---
[employer] HIS Report Study Information Study Number Admission Scheduled Start Study Start [id number] Apr 10 2018 8:21PM 04/11/2018 Apr 11 2018 9:49AM [place] Service Cardiac Catheterization Admit Source Facility Department Emergency department [facility] - Occupational Health And Safety Adviser Physician and Clinical Staff Initial Tee Winter Shaft Sinker Ed RN, Bk RecordBrittanie Du,DISTILLER TECH2 Scrub Delores Parker,RT(R) Procedures Performed Procedure Location (Site) Vessel Name Coronary Angiograms LCA Left Coronary Coronary Angiograms RCA Right Coronary L Heart Cath Equipment Time Generator Technician Description Size Mfg Part Number Used/Scraped TRANSDUCER, TRUWAVE [id number] 09:51 SANTI[employer] CEJA * Used W/STOCKCOCK *[id number] [id number] *[id number] [id number] *[id number] 09:51 [employer] PACK, CCL CUSTOM * Used *[id number] 09:51 [employer] SUPPORT, ARTERIAL ADULT [id number] *[id number] Used [id number] 09:51 [employer] PACER PEN, SKIN DUAL W/ RULER * Used *[id number] BAND, RADIAL COMPRESSION TR [id number] 10:51 [employer] 24CM Used SHORT 24 *[id number] SHEATH, FR6 RADIAL PRELUDE 09:51 [employer] FR 6 [id number] Used EASE 11CM [id number] 09:51 [employer] WIRE, EXCHANGE 260CM 3MMJ 260CM Used *[id number] 09:51 [employer] OMNIPAQUE, 350 MG, 150ML 150ML [id number] Used 10:34 [employer] OMNIPAQUE, 350 MG, 150ML 150ML [id number] Used 10:34 [employer] OMNIPAQUE, 350 MG, 150ML 150ML [id number] Used 10:34 [employer] OMNIPAQUE, 350 MG, 150ML 150ML [id number] Used 10:34 [employer] OMNIPAQUE, 350 MG, 150ML 150ML [id number] Used 10:34 [employer] OMNIPAQUE, 350 MG, 150ML 150ML [id number] Used [id number] 09:51 [employer] BLANKET,WARM AIR CCL * Used *[id number] History: Current Medications Medication Dosage/Unit Route Frequency Last Date/Time Taken NORVASC LISINOPRIL History: Allergies Allergy Reaction No Known Allergies History: Risk Factors Family History of Hypertension Dyslipidemia Previous NC Previous Heart Failure Premature CAD Yes No No No No Prior Valve Prior PCI Prior CABG Surgery No No No Cerebrovascular Peripheral Artery Chronic Lung On Dialysis Diabetes Disease Disease Disease No No No Yes No History: Symptoms/Diagnosis Selection Items Chest pain History: Stress Tests Stress or Imaging Studies Performed Yes Standard Exercise Stress Test No Stress Echo No Stress Test SPECT Stress Test SPECT Result Stress Test SPECT Ischemia Risk/Extent Yes Positive Intermediate Stress Test CMR No Cardiac CTA Coronary Calcium Score No No History: Other Current Smoker Method Packs a Day Years Used Pack Years Yes Cigarettes 1 50 50 Labs Hgb (g/dl) Hct (%) WBC (l/cumm) Platelets (thousands) 11.60-17.00 35.00-51.00 4.00-11.00 150.00-450.00 14.6 43 12.2 250 Glucose (mg/dl) BUN (mg/dl) Creatinine (mg/dl) BUN:Creatinine (1:x) 74.00-106.00 7.00-18.00 0.50-1.30 10.00-20.00 93 13 0.6 21.7 Na (meq/l) K (meq/l) 136.00-145.00 3.50-5.10 137 3.9 INR (PTT:PT) 0.90-1.10 1 Troponin I (ng/ml) CPK (u/l) CPK-MB (ng/ML) 0.02-0.05 26.00-308.00 0.50-3.60 0.02 70 Not Drawn Medication Medication Total Dose (Bolus/Oral) Medication Total Dosage/Unit 1% XYLOCAINE 5 mL FENTANYL 50 mcg HEPARIN 5000 units NTG (IC) 100 mcg VERSED 2 mg Medications (Bolus/Oral) Medication Time Given Dosage/Unit Administered By Reason VERSED 04/11/2018 10:38:15 AM 2 mg Bk Ward RN 2 mg VERSED given in lab by Bk Ward RN in Left Forearm via Peripheral IV. Ordered by Lb Bruce. FENTANYL 04/11/2018 10:39:43 AM 50 mcg Bk Ward RN 50 mcg FENTANYL given in lab by Bk Ward RN in Left Forearm via Peripheral IV. Ordered by Tee Bruce. 1% XYLOCAINE 04/11/2018 10:41:46 AM 5 mL Tee Bruce 5 mL 1% XYLOCAINE given in lab by Tee Bruce in Right Radial via Subcutaneous. Ordered by Tee Bruce. NTG (IC) 04/11/2018 10:43:28 AM 100 mcg Tee Bruce 100 mcg NTG (IC) given in lab by Tee Bruce in Right Radial via Intra-arterial. Ordered by Tee Bruce. HEPARIN 04/11/2018 10:43:48 AM 5000 units Bk Ward RN 5000 units HEPARIN given in lab by Bk Ward RN in Left Forearm via Peripheral IV. Ordered by Tee Yo. Medication (Drip) Medication Time Given Dosage/Unit Concentration/Unit Diluent (ml) Solution IV Solutions 04/11/2018 9:57:20 AM 0 mL (IV) 500 NaCl .9 Patient arrived on IV Solutions in Left Forearm via Peripheral IV. Pump/Drip Flow = 20 ml/hr using Na Cl .9. Initial Case Assessment Cardiovascular HR Rhythm Chest Pain 74 sr 0 Circulatory - Right Pulses Femoral Radial 2 2 Scale (0,1,2,3,4,d) Circulatory - Left Pulses Femoral Radial Scale (0,1,2,3,4,d) Neurological State Oriented to time-place- Alert Moves all extremities person Respiration - General Respiration Rate SpO2 (%) (B/min) 18 94 Final Case Assessment Cardiovascular HR Rhythm NIBP Chest Pain 75 sr 112/48 0 Circulatory - Right Pulses Femoral Radial 3 2 Scale (0,1,2,3,4,d) Circulatory - Left Pulses Femoral Radial Scale (0,1,2,3,4,d) Neurological State Oriented to time-place- Alert Moves all extremities person Respiration - General Respiration Rate SpO2 (%) (B/min) 18 93 Chronological Log Time Study Chronological Log 9:56:58 Patient arrived via Bed. 9:57:00 Patient Name, D.O.B, / Armband Verified By R.N. 9:57:01 Consent signed by the physician and the patient and verified by the Occupational Health And Safety Adviser staff. 9:57:02 Pre-op and post- op instructions given; patient acknowledges understanding of instructions. 9:57:03 Verbal Stimulation=2 Physical Stimulation=2 Airway=2 Respiration=2 TOTAL=8. (0=absent, 1=jasmine ited, 2=present) 9:57:04 Presedation assessment performed by Occupational Health And Safety Adviser RN. 9:57:09 Allens test performed on the right radial and ulnar artery. 9:57:11 Patient has been NPO for Less than 6Hrs. 9:57:13 Patient has been NPO for More than 6Hrs. 9:57:14 Skin Breakdown-none. RBKA 9:57:16 Chance Prominences Protected 9:57:19 A # 20 IV was noted in the Forearm (left). Grade = 0 9:57:20 Patient arrived on IV Solutions in Left Forearm via Peripheral IV. Pump/Drip Flow = 20 ml/hr using NaCl .9. 9:57:21 History and physical on the chart or being dictated. Vitals capture started with the following parameters, Patient=Adult, Interval=5 min, Initial Pr vjthdk=499 mmHg, 10:01:33 Deflation Rate=5 mmHg, Cuff placed on Left Arm 10:02:12 QVIW=616/78 mmhg, SpO2=94.0 % 10:07:11 HR=60 bpm, ZPNG=816/74 mmhg, SpO2=94 %, Resp=19 B/min, Pain=0, Triplett=2 Assessment: Initial Case, HR=74 BPM, Rhythm=sr, Chest Pain=0 Right Pulses: Femoral=2, Radial=2 10:11:53 Left Pulses: Rupesh Ped=3 Neurological: State=Alert, Ox3, CASTRO Respiration: Resp=18 B/min, SpO2=94 % 10:12:10 HR=63 bpm, QNQB=608/69 mmhg, SpO2=95 %, Resp=18 B/min 10:12:26 Reference ECG taken 10:17:07 HR=69 bpm, ODQA=105/77 mmhg, SpO2=96 %, Resp=20 B/min 10:21:23 Right groin and right radial prepped with 2% chlorhexidine, and draped after a 3 min. waiti ng time. 10:22:08 HR=67 bpm, WBQS=586/69 mmhg, SpO2=96 %, Resp=8 B/min 10:26:50 MD paged 10:27:05 HR=65 bpm, RUBG=523/71 mmhg, SpO2=94.0 %, Resp=17 B/min 10:27:51 MD responded 10:28:19 Pressure channel 1 zeroed. 10:32:06 HR=62 bpm, MUHO=081/83 mmhg, SpO2=94.0 %, Resp=22 B/min 10:37:09 HR=58 bpm, WRCW=933/81 mmhg, SpO2=94.0 %, Resp=20 B/min 10:38:02 MD arrived. 10:38:15 2 mg VERSED given in lab by Bk Ward RN in Left Forearm via Peripheral IV. Ordered by Tee Romero. 10:39:43 50 mcg FENTANYL given in lab by Bk Ward RN in Left Forearm via Peripheral IV. Ordered by Tee Bruce. Time Out. Correct patient, correct procedure, correct physician, labs, allergies, and equipment verified with laboratory mechanical technician 10:40:39 team present. Fire risk assesment completed (see hard stop sheet for coding). Time Out Conc urred by MD and individual staff in procedure. 10:41:44 Case Start 10:41:46 5 mL 1% XYLOCAINE given in lab by Tee Bruce in Right Radial via Subcutaneous. Ordered by Tee Bruce. 10:42:10 HR=68 bpm, FQMN=875/75 mmhg, SpO2=94 %, Resp=14 B/min 10:42:51 Access site was Radial Artery. Right A SHEATH, FR6 RADIAL PRELUDE EASE 11CM FR 6 was advanced into the Radial (right) using the Perc utaneous 10:43:03 technique. 10:43:28 100 mcg NTG (IC) given in lab by Tee Bruce in Right Radial via Intra-arterial. Ordered by Tee Bruce. 10:43:48 5000 units HEPARIN given in lab by Bk Ward RN in Left Forearm via Peripheral IV. Order ed by Tee Bruce. 10:44:19 In the Radial (right) the SHEATH, FR6 RADIAL PRELUDE EASE 11CM FR [address] by Tee Bruce. A JR 5.0 INFINITI CATHETER FR 5 was advanced over a wire. OMNIPAQUE, 350 MG, 150ML 150ML was us ed for 10:44:40 injections. Recorded Pressure: LV, HR=76, Condition=Condition 1 10:44:52 (Left Ventricle) LV 99/-1/3 Recorded Pressure: LV, Ao, HR=75, Condition=Condition 1 10:44:57 (Left Ventricle) LV 98/0/4, (Aorta) Ao 99/61/78 10:45:21 The RCA was injected and visualized at various angles. OMNIPAQUE, 350 MG, 150ML 150ML used . After removing the current catheter a JL 3.5 INFINITI CATHETER FR 5 was advanced over a WIRE, E XCHANGE 260CM 10:45:51 3MMJ 260CM. 10:46:35 The LCA was injected and visualized at various angles. OMNIPAQUE, 350 MG, 150ML 150ML used . 10:47:11 HR=78 bpm, MWVH=041/71 mmhg, SpO2=92 %, Resp=15 B/min 10:49:59 Catheter was removed 10:50:42 Case End Radial Compression Device Used. 13 mLs of air placed in BAND, RADIAL COMPRESSION TR SHORT 24 24 CM. Affected 10:51:51 hand 94 % O2 saturation. Assessment: Final Case, HR=75 BPM, Rhythm=sr, QJBW=970/48 mmhg, Chest Pain=0 Right Pulses: Femoral=3, Radial=2 10:52:04 Left Pulses: Rupesh Ped=3 Neurological: State=Alert, Ox3, CASTRO Respiration: Resp=18 B/min, SpO2=93 % 10:52:14 HR=74 bpm, YVZP=339/48 mmhg, SpO2=94 %, Resp=19 B/min 10:59:13 No case complications noted. 10:59:14 Cine recording checked. 10:59:16 Bedside Report will be given. 10:59:22 A Left Heart Cath was performed. 10:59:25 Patient moved to bed 11:00:34 Patient transported to DOCU. End Study - Contrast Media Used In Study Contrast Total Opened (mL) Total Used (mL) Total Wasted (mL) Omnipaque 50 50 0 End Study - Maximum Contrast Load Max Contrast Load (mL) 679.9 End Study - Radiation Exposure Fluoro Time (minutes) 1.1 End Study - Sheaths Sheaths Pulled By Sheath Hold Time (min) Delores Parker End Study - Patient Disposition Complications Transferred To Interventional Outcome No Telemetry Bed No attempt made
--- NOTE | 2018-04-11 11:00 | HHI.DS ---
Discharge Summary Admission Date April 10, 2018 at 20:21 Discharge Date: April 11, 2018 Admitting Diagnosis chest pain; h/o htn (1) Chest pain Diagnosis: Principal ICD Codes: R07.9 - Chest pain, unspecified (2) Hypertension ICD Codes: I10 - Essential (primary) hypertension CBC/BMP: 04/11/18 0515 04/09/18 1942 Significant Findings Laboratory Tests Test 04/09/18 19:42 04/09/18 21:29 04/10/18 05:05 04/11/18 05:15 White Blood Count 14.3 TH/MM3 (4.0-11.0) 12.2 TH/MM3 (4.0-11.0) Neutrophils (%) (Auto) 73.6 % (16.0-70.0) Neutrophils # (Auto) 10.6 TH/MM3 (1.8-7.7) 8.2 TH/MM3 (1.8-7.7) Troponin I LESS THAN 0.02 NG/ML LESS THAN 0.02 NG/ML Imaging Last Impressions Myocardial Perfusion Scan Nuc Med 04/10/18 0000 Signed Impressions: Service Date/Time: Tuesday, April 10, 2018 11:34 - CONCLUSION: 1. Scintigraphic findings concerning for patchy ischemia in the distribution of the anterior wall. 2. Apical thinning versus old apical infarct. 3. Mild septal hypokinesis with a preserved ejection fraction of 53%% RISK CATEGORY: Intermediate (1-3%% Annual Mortality Rate) Abdirashid Andres MD Chest X-Ray 04/09/18 1929 Signed Impressions: Service Date/Time: Monday, April 09, 2018 19:42 - CONCLUSION: 1. No acute cardiopulmonary disease. Dayo Agrawal MD PE at Discharge GENERAL: SKIN: Warm and dry. HEAD: Normocephalic. EYES: No scleral icterus. No injection or drainage. NECK: Supple, trachea midline. No JVD or lymphadenopathy. CARDIOVASCULAR: Regular rate and rhythm without murmurs, gallops, or rubs. RESPIRATORY: Breath sounds equal bilaterally. No accessory muscle use. GASTROINTESTINAL: Abdomen soft, non-tender, nondistended. MUSCULOSKELETAL: No cyanosis, or edema. BACK: Nontender without obvious deformity. No CVA tenderness. Hospital Course intermediate risk stress test LHC - nonobstructive CAD dc planning Pt Condition on Discharge: Good Discharge Disposition: Discharge Home Discharge Instructions DIET: Follow Instructions for: Heart Healthy Diet Activities you can perform: Weight Bearing as Tee Wayne MD April 11, 2018 11:00
--- NOTE | 2018-04-11 11:15 | MA ---
cc: Tee Bruce MD DATE: 04/11/2018 INDICATION: Unstable angina. PROCEDURES PERFORMED: 1. Fluoroscopy with interpretation. 2. Coronary angiography. 3. Left heart catheterization. METHOD: The risks, benefits and alternatives discussed with the patient. The patient understood and consented to the procedure. PROCEDURAL STATEMENT: The patient brought into the catheterization lab, placed on the catheterization table. The right wrist was prepped and draped in the usual sterile fashion. The right wrist was anesthetized with 2% lidocaine. The right radial artery was cannulated and a 6-Norwegian 7 cm sheath was placed without difficulty. 5000 intravenous units of heparin was administered and 200 mcg of intraarterial nitroglycerin was administered. LEFT HEART CATHETERIZATION: Intraventricular hemodynamics measured 98/0 mmHg. CORONARY ANGIOGRAPHY: 1. Left main coronary is angiographically normal. 2. Left anterior descending coronary has a 40% stenosis in the mid segment. There is a diagonal branch with mild luminal irregularities. The remainder of the vessel in the left anterior descending coronary has mild luminal irregularities. 3. Circumflex is angiographically normal. 4. Right coronary artery is a small vessel angiographically normal. CONCLUSIONS: 1. Mild to moderate mid left anterior descending coronary artery disease, primarily nonobstructive. 2. Normal left-sided filling pressure. PLAN: Symptoms sounded atypical and this stenosis does not appear to be hemodynamically significant. We will add aspirin in addition to statin therapy. Continue blood pressure control. The patient can followup with primary care physician in the outpatient setting. Tee Bruce MD OLINDA/DL , 10:58 AM , 11:14 AM
[2018-04-11] MEDS ORDERED: IOHEXOL 350 MG/ML 50 ML BTL (for Cath Lab) OTHER ONE (13:01)
== END 2018-04-11 14:22 | disposition home or self-care (01) | DRG 287 ==
LOC: PHED 18:56 → PHEDA 20:56 → PHICU 22:17 → PH3A 04-10 05:05 → OBSVTOIN 04-10 20:21 → HDIC 04-11 06:43 → HCIS 04-11 10:08
PROVIDERS: ADMIT Hospitalist; ATTEND Hospitalist
PROC: B2111ZZ Fluoroscopy of Multiple Coronary Arteries using Low Osmolar Contrast (ICD-10-PCS; 2018-04-11)
PROC: 4A023N7 Measurement of Cardiac Sampling and Pressure, Left Heart, Percutaneous Approach (ICD-10-PCS; principal; 2018-04-11 10:30)
DX: R07.9 Chest pain, unspecified (principal); I10 Essential (primary) hypertension; I25.10 Atherosclerotic heart disease of native coronary artery without angina pectoris; Z79.82 Long term (current) use of aspirin; J44.9 Chronic obstructive pulmonary disease, unspecified; F17.210 Nicotine dependence, cigarettes, uncomplicated; Z89.511 Acquired absence of right leg below knee
CPT/HCPCS: 71046; 78452; 80048; 81001; 82550; 83735; 84484; 85025; 85610; 85730; 93005; 93017; 93458; 96360; 99152; A9502; C1769; C1893; G0378; J1644; J2250; J2785; J3010; J7040; Q9967